=== PATIENT | female | born 1950 | race Caucasian/White ===

== ENCOUNTER 2019-11-14 06:26 | Day surgery (SDC) | payer MEDICARE, OTHER ==
[2019-11-12 10:14] LABS: HEMATOCRIT 39.7 % (36.0-48.0); HEMOGLOBIN 12.9 g/dL (12-16); MCH 30.1 pg (26.0-34.0); MCHC 32.5 g/dL (31.0-37.0); MCV 92.8 fL (80.0-100.0); MEAN PLATELET VOLUME 11.1 fL (7.4-10.4); RBC 4.28 10x6/uL (4.00-5.40); RDW 12.3 % (11.5-14.5); WBC 3.8 10x3/uL (4.8-10.8)
[~2019-11-14] VITALS: Ht 177.8 cm; Wt 78.9 kg
--- NOTE | ~2019-11-14 | OP ---
PATIENT NAME: ARSEN SALAZAR MEDICAL RECORD: [id number] :54 LOCATION:[facility] ADMISSION DATE: SURGEON: ASHKAN DAVIS DPM DATE OF OPERATION: 11/14/2019 PREOPERATIVE DIAGNOSIS: Mass, dorsal aspect of bilateral feet. POSTOPERATIVE DIAGNOSES: Mass, dorsal aspect of bilateral feet with inclusion of spur, dorsal bilateral feet. PROCEDURE: Removal of mass, dorsal bilateral feet as well as spur removal, dorsal bilateral feet. ANESTHESIA: General with local infiltrate utilizing 8 cc in the dorsal aspect of bilateral feet. HEMOSTASIS: Bilateral tourniquets at 250 mmHg. PREOPERATIVE DETAILS: The patient was taken to the OR, placed on the operating table in supine position followed by infiltration of local anesthetic and dorsal aspect of bilateral feet. The bilateral extremities were then prepped and draped in usual aseptic technique followed by exsanguination and inflation of the tourniquet of the right foot first. DESCRIPTION OF PROCEDURE: PROCEDURE #1: Dorsal mass and spur removal, right foot. A 15 blade was used to create a 3 cm linear incision over the dorsal aspect of the right foot overlying the middle cuneiform joint and second metatarsal. The incision was deepened down through subcutaneous tissue being sure to avoid all vital structures. These nerve as well as the artery were identified and retracted in the wound. There was noted to be a lipoma and scar tissue, which was excised. Following the excision of the lipoma and scar tissue from a previous surgery, there was noted to be spurring on the dorsal aspect of the mid foot joints. At this time, a periosteal incision was made and freed from the dorsal aspect of the joints. A rasp was then used to smooth the joints involving the first met cuneiform joint, the second met cuneiform joint, and the third met cuneiform joint. Following this, excellent reduction in the size of the dorsal aspect of the foot was noted. The wound was flushed. The periosteum was repaired with 2-0 Vicryl, and the subcutaneous tissue with 4-0 Rapide and the skin was closed with 4-0 Rapide in a subcuticular technique followed by Dermabond. Adaptic, 4 x 4 and Conform were used to dress the wound followed by Ilir wrap. Tourniquet was deflated. PROCEDURE #2: Mass removal as well as spur removal, dorsal aspect of the left foot. The incision as described in 1 was performed without variation and no complication. POSTOPERATIVE DETAILS: The patient tolerated the procedure well and left the OR with vital signs stable and vascular status at preoperative levels. The patient was transported to recovery per anesthesia in stable condition. TRANSINT:[id number] Voice Confirmation ID: [id number] DOCUMENT ID: [id number] OPERATIVE REPORT [id number] ARSEN SALAZAR MCKAY DPM CC: [id number] DICTATION DATE: 11/14/19 1101 [employer] TESTER: 11/14/19 1548 [facility] 11/14/19 [id number] [place] [address]
[~2019-11-14 06:26] MED LIST: BAYER CHEWABLE81 MG PO; COREG 3.1253.125 MG PO; COZAAR50 MG PO; FENOFIBRATE54 MG PO; HYDROCHLOROTH12.5 M1 PO; HYDROCODONE-APA1 TAB PO; HYZAAR 50-12.51 TAB PO; LEVOXYL75 MCG PO; OMEGA 3 FISH OI1 CAP PO; PHENERGAN25 M1 PO; PREMARIN0.625 MG PO; PROBIOTIC1 EAC1 PO; REQUIP5 MG PO; SYNTHROID50 MCG PO
--- NOTE | 2019-11-14 07:43 | NUR ---
0630-WHILE IN BATHROOM, METAL COVER TO PAPER TOWEL DISPENSER OPENED AND STRUCK PATIENT ON HEAD. ASSISTED TO BED, NOTED QUARTER SIZED RAISED AREA ON TOP OF HEAD. NO LOSS OF CONSCIOUSNESS NOTED, NO SKIN BREAKDOWN. ICE PACK OFFERED. DR. DAVIS PHONED WITH STATUS REPORT. [id number]-DR. DAVIS HERE AT BEDSIDE TO ASSESS PATIENT. VERBAL ORDER GIVEN TO PROCEED WITH PROCEDURE.
[2019-11-14 08:29] VITALS: BP 118/76; Ht 177.8 cm; Wt 78.9 kg
--- NOTE | 2019-11-14 12:44 | NUR ---
1240 IV REMOVED AND PRESSURE HELD AND DRESSING APPLIED
== END 2019-11-14 12:50 | disposition home or self-care (01) ==
LOC: D.OPS 06:26
PROVIDERS: Anesthesiology; ATTEND Podiatrist
DX: R22.43 Localized swelling, mass and lump, lower limb, bilateral (principal)

== ENCOUNTER 2020-10-01 05:50 | Observation (INO) | payer MEDICARE, OTHER ==
[2020-09-30 10:41] LABS: BASOPHILS 1.9 % (0-2); EOSINOPHILS 3.2 % (0-7); HEMATOCRIT 40.8 % (36.0-48.0); HEMOGLOBIN 13.6 g/dL (12-16); LYMPHOCYTES 22.9 % (15-50); MCH 28.9 pg (26.0-34.0); MCHC 33.4 g/dL (31.0-37.0); MCV 86.6 fL (80.0-100.0); MEAN PLATELET VOLUME 8.4 fL (7.4-10.4); RBC 4.72 10x6/uL (4.00-5.40); RDW 13.7 % (11.5-14.5); WBC 4.7 10x3/uL (4.8-10.8)
[2020-09-30 10:47] LABS: ANION GAP 15.5 mmol/L (8-16); CALCIUM 9.6 mg/dL (8.5-10.1); CARBON DIOXIDE 25.4 mmol/L (21.0-32.0); CREATININE - SERUM 1.1 mg/dL (0.6-1.3); POTASSIUM - SERUM 3.9 mmol/L (3.5-5.1)
[2020-09-30 10:55] LABS: PLATELET COUNT 189 10x3/uL (130-400)
[~2020-10-01] VITALS: Ht 177.8 cm; Wt 115.9 kg
[2020-10-01 06:38] VITALS: BP 119/71; BMI 29.9
[2020-10-01] MEDS ORDERED: TYLENOL W/CODEI1 TAB PO (10:23)
[2020-10-01] MEDS ORDERED: LEVOFLOXACIN500 MG PO (10:23)
[2020-10-01 13:28] VITALS: BP 129/74; Ht 177.8 cm; Wt 115.9 kg
--- NOTE | 2020-10-01 14:12 | NUR ---
1255 REPORT CALLED TO [facility] ON [facility]. PT TRANSFERRED VIA STRETCHER AND WALKED FROM STRETCHER TO BED WITHOUT C/O. IN STABLE CONDITION
[2020-10-01 17:47] VITALS: BP 119/68
[2020-10-01 20:00] VITALS: BP 118/64
--- NOTE | 2020-10-01 20:00 | NUR ---
PT SITTING UP IN BED WITHOUT DISTRESS, AOX4. STAND BY ASSISTED PT TO BATHROOM AND BACK TO BED. LAP SITES TO ABD CDI. REQUESTED AND GIVEN WATER AND CRACKERS. DENIES OTHER NEEDS. CL IN REACH
[2020-10-02] VITALS: BP 106/57
[2020-10-02 04:00] VITALS: BP 96/56
--- NOTE | 2020-10-02 07:30 | NUR ---
REC'D IN ROOM SITTING ON SIDE OF BED AWAKE AND ALERT. RESP EVEN AND UNLABORED WITH NO DISTRESS NOTED. CAN EXPRESS NEEDS AND WANTS. NO C/O NOTED. ASSESSMENT COMPLETED. C/L IN REACH AT BEDSIDE.
[2020-10-02 08:25] VITALS: BP 124/76
--- NOTE | 2020-10-02 11:27 | NUR ---
I have reviewed this patient and I concur with the Shift Assessment completed by the Licensed Practical Nurse today this shift.
--- NOTE | 2020-10-02 13:01 | NUR ---
DC HOME AT THIS TIME VOICE UNDERSTANDING DC INSTRUCTION. IV DC AT THIS TIME. STABLE CONDITION UPON DEPARTURE.
== END 2020-10-02 13:04 | disposition home or self-care (01) ==
LOC: D.OPS 05:50 → D.MS 12:45 → D.OPS 14:45 → D.MS 14:46 → OBSVTIME 14:46 → D.MS 10-02 13:04
PROVIDERS: Anesthesiology; ADMIT Surgery; ATTEND Surgery
DX: K55.049 Acute infarction of large intestine, extent unspecified (principal); K66.0 Peritoneal adhesions (postprocedural) (postinfection)